=== PATIENT | female | born 1935 | race Caucasian/White ===

== ENCOUNTER 2021-01-31 13:55 | Emergency (ER) | payer MEDICARE | END 2021-01-31 15:44 | disposition left against medical advice (07) | LOC: ERS 13:55 | DX: Z53.21 Procedure and treatment not carried out due to patient leaving prior to being seen by health care provider (principal) ==

== ENCOUNTER 2021-06-07 00:45 | Observation (INO) | payer MEDICARE ==
[2021-06-07] MEDS ORDERED: Aspirin 325 MG TAB ONE ×2 (01:11→09:19)
[2021-06-07 01:33] LABS: #Basophils 0.1 thou/uL (0.0-0.2); #Eosinphils 0.2 thou/uL (0.0-0.7); #Lymphocytes 1.7 thou/uL (1.20-3.40); #Monocytes 0.8 thou/uL (0.11-0.59); #Neutrophils 3.6 thou/uL (1.40-6.50); %Basophils 1.3 % (0.0-1.0); %Eosinophils 3.1 % (0.0-10.0); %Lymphocytes 27.1 % (21.0-51.0); %Monocytes 12.1 % (0.0-10.0); %Neutrophils 56.5 % (42.0-75.0); Hemoglobin 13.1 g/dL (12.0-16.0); Mean Corpuscular HGB CONC 31.7 g/dL (32.0-36.0); Mean Corpuscular Hemoglobin 28.2 pg (27.0-31.0); Mean Corpuscular Volume 89.1 fL (78.0-98.0); Mean Platelet Volume 10.1 fL (7.4-10.4); Platelet Count 176 thou/uL (130-400); RBC Distribution Width 12.3 % (11.5-14.5); Red Blood Cell (RBC) Count 4.63 mill/uL (4.20-5.40); White Blood Cell (WBC) Count 6.4 thou/uL (4.8-10.8)
[2021-06-07 01:57] LABS: ALT (SGPT) 19 U/L (8-55); AST (SGOT) 24 U/L (5-34); Alkaline Phosphatase 116 U/L (40-110); Anion Gap 12 mmol/L (10-20); BUN (Urea Nitrogen) 26 mg/dL (9.8-20.1); Bilirubin, Total 0.4 mg/dL (0.2-1.2); Calc. Creatinine Clearance 0 mL/min (70-130); Calcium 9.5 mg/dL (7.8-10.44); Carbon Dioxide 30 mmol/L (23-31); Chloride 102 mmol/L (98-107); Globulin 2.9 g/dL (2.4-3.5); Glucose 116 mg/dL (83-110); Potassium 4.4 mmol/L (3.5-5.1); Protein, Total 6.9 g/dL (5.8-8.1); Sodium 140 mmol/L (136-145)
[2021-06-07 05:06] LABS: SARS-CoV-2 NAA Rapid Test Not Detected (NotDetected)
[2021-06-07 06:04] LABS: Bacteria/HPF None Seen HPF (None Seen); Bilirubin Negative (Negative); Blood, Urine 1+ (Negative); Clarity Turbid (Clear); Glucose, Urine (Dipstick) Normal (Negative); Ketone, Urine Negative (Negative); Leukocyte 500 Leu/uL (Negative); Nitrite Negative (Negative); Protein, Urine (Dipstick) Negative (Neg-Trace); Specific Gravity, Urine 1.012 (1.002-1.036); Squamous Epithelial 0-3 HPF (0-3); Urobilinogen Normal mg/dL (Less than 2); WBC/HPF Greater than 50 HPF (0-3); pH, Urine 6.5 (5.0-9.0)
[2021-06-07] MEDS ORDERED: Senokot S 8.6-50 MG TAB PO PRN (07:30)
[2021-06-07] MEDS ORDERED: Bisacodyl 5 MG TAB PO PRN (07:30)
[2021-06-07] MEDS ORDERED: Bisacodyl 10 MG SUPP PR PRN (07:30)
[2021-06-07] MEDS ORDERED: Acetaminophen 325 MG TAB PO PRN (07:30)
[2021-06-07] MEDS ORDERED: Ondansetron PF 4 MG/2 ML Vial IVP PRN (07:30)
[2021-06-07 08:46] LABS: Cardiac Risk 3.3 (Less than 4.5)
[2021-06-07] MEDS: Aspirin 325 MG TAB PO SCH (09:24)
[2021-06-07 18:05] VITALS: BMI 25.4
[2021-06-07] MEDS ORDERED: Temazepam 15 MG CAP PO PRN (18:38)
[2021-06-07] MEDS ORDERED: Donepezil HCl 10 MG TAB PO SCH (21:00)
[2021-06-07] MEDS ORDERED: Lorazepam 0.5 MG TAB PO SCH (21:00)
[2021-06-07] MEDS ORDERED: Atorvastatin Calcium 40 MG TAB PO SCH (21:00)
[2021-06-08 04:52] LABS: #Basophils 0.1 thou/uL (0.0-0.2); #Eosinphils 0.3 thou/uL (0.0-0.7); #Lymphocytes 1.5 thou/uL (1.20-3.40); #Monocytes 0.6 thou/uL (0.11-0.59); %Basophils 1.3 % (0.0-1.0); %Eosinophils 4.8 % (0.0-10.0); %Lymphocytes 27.8 % (21.0-51.0); %Monocytes 11.7 % (0.0-10.0); %Neutrophils 54.4 % (42.0-75.0); Mean Corpuscular HGB CONC 33.4 g/dL (32.0-36.0); Mean Corpuscular Hemoglobin 29.3 pg (27.0-31.0); Mean Corpuscular Volume 87.7 fL (78.0-98.0); Mean Platelet Volume 10.1 fL (7.4-10.4); Platelet Count 176 thou/uL (130-400); RBC Distribution Width 12.1 % (11.5-14.5); Red Blood Cell (RBC) Count 4.43 mill/uL (4.20-5.40); White Blood Cell (WBC) Count 5.5 thou/uL (4.8-10.8)
[2021-06-08 05:15] LABS: ALT (SGPT) 16 U/L (8-55); AST (SGOT) 23 U/L (5-34); Albumin 3.6 g/dL (3.4-4.8); Alkaline Phosphatase 96 U/L (40-110); Anion Gap 12 mmol/L (10-20); BUN (Urea Nitrogen) 20 mg/dL (9.8-20.1); Bilirubin, Total 0.5 mg/dL (0.2-1.2); Calc. Creatinine Clearance 49 mL/min (70-130); Calcium 9.3 mg/dL (7.8-10.44); Carbon Dioxide 28 mmol/L (23-31); Chloride 105 mmol/L (98-107); Globulin 2.5 g/dL (2.4-3.5); Glucose 103 mg/dL (83-110); Magnesium 2.1 mg/dL (1.6-2.6); Phosphorus 4.1 mg/dL (2.3-4.7); Potassium 4.4 mmol/L (3.5-5.1); Protein, Total 6.1 g/dL (5.8-8.1); Sodium 141 mmol/L (136-145)
[2021-06-08] MEDS ORDERED: Levothyroxine Sodium 50 MCG TAB PO SCH (06:00)
[2021-06-08] MEDS ORDERED: Stress 600 With Zinc 1 TAB PO SCH (09:00)
[2021-06-08] MEDS: Aspirin 325 MG TAB PO SCH (09:11)
[2021-06-08 11:59] VITALS: BP 162/72; TEMP 97.6
[2021-06-10] MEDS ORDERED: FLU VACC QS2021-22(65YR UP)/PF 240 MCG/0.7 ML SYRINGE IM ONE (09:00)
== END 2021-06-08 15:38 | disposition home or self-care (01) ==
LOC: ERS 00:45 → ERHOLD 03:35 → 2SW 16:03
PROVIDERS: ADMIT Family Medicine; ATTEND Family Medicine
DX: R29.810 Facial weakness (principal); R20.0 Anesthesia of skin; I16.1 Hypertensive emergency; I11.9 Hypertensive heart disease without heart failure; F03.90 Unspecified dementia, unspecified severity, without behavioral disturbance, psychotic disturbance, mood disturbance, and anxiety; G47.00 Insomnia, unspecified; E03.9 Hypothyroidism, unspecified; E78.5 Hyperlipidemia, unspecified; I08.8 Other rheumatic multiple valve diseases; Z79.899 Other long term (current) drug therapy; Z20.822 Contact with and (suspected) exposure to COVID-19
CPT/HCPCS: 70450; 70551; 71045; 80053; 80061; 83036; 83735 ×2; 84100; 84439; 84484; 85025; 93005; 93306; 93880; 97116; 97139 ×4; 99285; G0378 ×3; U0002; 36415; 81003; 81015; 84443

== ENCOUNTER 2022-10-06 21:12 | Emergency (ER) | payer MEDICARE ==
[2022-10-06] MEDS ORDERED: Acetaminophen 500 MG TAB ONE (21:31)
[2022-10-06 21:57] LABS: Bacteria/HPF 4+ HPF (None Seen); Bilirubin Negative (Negative); Blood, Urine 2+ (Negative); Clarity Clear (Clear); Glucose, Urine (Dipstick) Normal (Negative); Ketone, Urine Negative (Negative); Leukocyte 500 Leu/uL (Negative); Nitrite Negative (Negative); Protein, Urine (Dipstick) Negative (Neg-Trace); RBC/HPF Greater than 50 HPF (0-3); Renal Epithelial 0-3 HPF (None Seen); Squamous Epithelial 0-3 HPF (0-3); Urobilinogen Normal mg/dL (Less than 2); WBC/HPF 21-50 HPF (0-3)
[2022-10-06] MEDS ORDERED: Labetalol HCl 100 MG/20 ML VIAL ONE (22:12)
[2022-10-06] MEDS ORDERED: cefTRIAXone\\ROCEPHIN 1 GM VIAL ONE (22:12)
[2022-10-06 22:21] LABS: #Basophils 0.1 thou/uL (0.0-0.2); #Eosinphils 0.2 thou/uL (0.0-0.7); #Monocytes 0.6 thou/uL (0.11-0.59); #Neutrophils 2.7 thou/uL (1.40-6.50); %Basophils 1.2 % (0.0-1.0); %Lymphocytes 36.3 % (21.0-51.0); %Monocytes 10.7 % (0.0-10.0); %Neutrophils 47.8 % (42.0-75.0); Hemoglobin 13.6 g/dL (12.0-16.0); Mean Corpuscular HGB CONC 31.5 g/dL (32.0-36.0); Mean Corpuscular Hemoglobin 28.7 pg (27.0-31.0); Mean Corpuscular Volume 90.8 fl (78.0-98.0); Mean Platelet Volume 10.6 fL (7.4-10.4); Platelet Count 173 10x3/uL (130-400); RBC Distribution Width 12.1 % (11.5-14.5); Red Blood Cell (RBC) Count 4.76 mill/uL (4.20-5.40); White Blood Cell (WBC) Count 5.5 10x3/uL (4.8-10.8)
[2022-10-06 22:26] LABS: SARS-CoV-2 NAA Rapid Test Not Detected (NotDetected)
[2022-10-06 22:41] LABS: ALT (SGPT) 16 U/L (8-55); AST (SGOT) 22 U/L (5-34); Albumin 4.4 g/dL (3.4-4.8); Alkaline Phosphatase 132 U/L (40-110); Anion Gap 14 mmol/L (10-20); BUN (Urea Nitrogen) 22 mg/dL (9.8-20.1); Bilirubin, Total 0.5 mg/dL (0.2-1.2); Calc. Creatinine Clearance 0 mL/min (70-130); Calcium 9.3 mg/dL (7.8-10.44); Carbon Dioxide 26 mmol/L (23-31); Chloride 104 mmol/L (98-107); Estimated GFR 59; Globulin 3.2 g/dL (2.4-3.5); Glucose 105 mg/dL (83-110); Lipase 18 U/L (8-78); Magnesium 2.3 mg/dL (1.6-2.6); Protein, Total 7.6 g/dL (5.8-8.1); Sodium 140 mmol/L (136-145)
== END 2022-10-06 23:17 | disposition home or self-care (01) ==
LOC: ERS 21:12
DX: N39.0 Urinary tract infection, site not specified (principal); E78.00 Pure hypercholesterolemia, unspecified; E03.9 Hypothyroidism, unspecified; Z79.82 Long term (current) use of aspirin; Z20.822 Contact with and (suspected) exposure to COVID-19
CPT/HCPCS: 0240U; 71045; 83605; 83690; 83735; 84484; 87040; 87086; 93005; 96365; 96375; 99284; 36415; 80053; 81003; 81015; 84443; 85025; J0696

== ENCOUNTER 2023-01-17 12:20 | Outpatient (CLI) | payer MEDICARE ==
[~2023-01-17 12:20] MED LIST: Iopamidol 370 76% 100 ML VIAL ONE
== END 2023-01-17 12:21 | disposition home or self-care (01) ==
LOC: BICCT 12:20
PROVIDERS: ATTEND Internal Medicine
DX: R31.0 Gross hematuria (principal); K80.20 Calculus of gallbladder without cholecystitis without obstruction
CPT/HCPCS: 74178; 82565; Q9967

== ENCOUNTER 2023-11-03 19:27 | Emergency (ER) | payer MEDICARE | END 2023-11-03 21:00 | disposition home or self-care (01) | LOC: ERS 19:27 | DX: Z04.1 Encounter for examination and observation following transport accident (principal); E03.9 Hypothyroidism, unspecified; E78.00 Pure hypercholesterolemia, unspecified; Z79.899 Other long term (current) drug therapy; Z79.82 Long term (current) use of aspirin; Z55.6 Problems related to health literacy | CPT/HCPCS: 70450; 72125 ==

== ENCOUNTER 2024-07-11 16:39 | Emergency (ER) | payer MEDICARE ==
[2024-07-11 18:59] LABS: #Basophils 0.09 10x3/uL (0.0-0.2); %Basophils 1.2 % (0.0-1.0); %Eosinophils 2.7 % (0.0-10.0); %Lymphocytes 23.5 % (21.0-51.0); %Monocytes 11.6 % (0.0-10.0); %Neutrophils 60.6 % (42.0-75.0); Hematocrit 40.7 % (36.0-47.0); Hemoglobin 12.8 g/dL (12.0-16.0); Mean Corpuscular HGB CONC 31.4 g/dL (32.0-36.0); Mean Corpuscular Hemoglobin 28.2 pg (27.0-31.0); Mean Corpuscular Volume 89.6 fL (78.0-98.0); Mean Platelet Volume 12.4 fL (7.4-10.4); Platelet Count 226 10x3/uL (130-400); RBC Distribution Width 13.7 % (11.5-14.5); Red Blood Cell (RBC) Count 4.54 mill/uL (4.20-5.40)
[2024-07-11 19:06] LABS: Actual Bicarbonate (HCO3v) 32.2 mEq/L (22-28); Analyzer IN Cardio ER; Base Excess 5.9 mEq/L (-2.0 to +3.0); Calcium, Ionized (venous) 1.11 mmol/L (1.16-1.32); Chloride (VBG) 102 mmol/L (98-106); Hematocrit-VBG 41 % (36.0-47.0); Hemoglobin (Hb) 13.9 g/dL (11.7-16.1); Potassium (VBG) 4.71 mmol/L (3.70-5.30); Sodium 146 mmol/L (133-146); pH (venous) 7.397 (7.32-7.43)
[2024-07-11 19:23] LABS: ALT (SGPT) 16 U/L (8-55); AST (SGOT) 23 U/L (5-34); Albumin 3.6 g/dL (3.4-4.8); Alkaline Phosphatase 147 U/L (40-110); Anion Gap 17 mmol/L (10-20); BUN (Urea Nitrogen) 19 mg/dL (9.8-20.1); Bilirubin, Total 0.3 mg/dL (0.2-1.2); Calc. Creatinine Clearance 0 mL/min (70-130); Calcium 9.6 mg/dL (7.8-10.44); Carbon Dioxide 28 mmol/L (23-31); Chloride 104 mmol/L (98-107); Estimated GFR 47; Globulin 3.7 g/dL (2.4-3.5); Glucose 123 mg/dL (83-110); Magnesium 2.2 mg/dL (1.6-2.6); Potassium 4.8 mmol/L (3.5-5.1); Protein, Total 7.2 g/dL (5.8-8.1); Sodium 144 mmol/L (136-145)
[2024-07-11 19:24] LABS: Troponin I Less than 0.010 ng/mL (< 0.028)
[2024-07-11 20:44] LABS: Bilirubin Negative (Negative); Blood, Urine Negative (Negative); CAUTI Indications for Culture Alt mental st,lethar; Clarity Turbid (Clear); Glucose, Urine (Dipstick) Normal (Negative); Ketone, Urine Negative (Negative); Leukocyte 500 Leu/uL (Negative); Nitrite 2+ (Negative); Protein, Urine (Dipstick) Negative (Neg-Trace); RBC/HPF 0-3 HPF (0-3); Specific Gravity, Urine 1.003 (1.002-1.036); Squamous Epithelial 0-3 HPF (0-3); Urobilinogen Normal mg/dL (Less than 2); WBC/HPF Greater than 50 HPF (0-3); pH, Urine 7.5 (5.0-9.0)
[2024-07-11 20:55] LABS: Bacteria/HPF 3+ HPF (None Seen)
[2024-07-11 20:57] LABS: Yeast-Budding None Seen HPF (None Seen)
[2024-07-11 21:00] LABS: Urine Culture Reflex Yes Yes
== END 2024-07-11 21:30 | disposition home or self-care (01) ==
LOC: ERS 16:39
DX: N39.0 Urinary tract infection, site not specified (principal); E03.9 Hypothyroidism, unspecified; E78.00 Pure hypercholesterolemia, unspecified; Z79.899 Other long term (current) drug therapy; Z79.890 Hormone replacement therapy
CPT/HCPCS: 36415; 70360; 70450; 71045; 80053; 81001; 82805; 83605; 83735; 84484; 85025; 87077; 87086; 87186; 93005

== ENCOUNTER 2024-08-17 21:33 | Emergency (ER) | payer MEDICARE ==
[~2024-08-17 21:33] MED LIST changes: -Iopamidol 370 76% 100 ML VIAL ONE; +Iopamidol-370 76% 500 ML MDV (1 ML CHARGE) ONE
[2024-08-17] MEDS ORDERED: Morphine 2 MG/ML VIAL ONE ×2 (21:47→22:31)
[2024-08-17] MEDS ORDERED: Ketorolac Tromethamine 30 MG (1 mL) VIAL ONE (21:47)
[2024-08-17 22:15] LABS: #Basophils 0.06 10x3/uL (0.0-0.2); %Basophils 0.6 % (0.0-1.0); %Eosinophils 1.2 % (0.0-10.0); %Lymphocytes 12.9 % (21.0-51.0); %Monocytes 8.7 % (0.0-10.0); %Neutrophils 76.2 % (42.0-75.0); Hematocrit 42.3 % (36.0-47.0); Hemoglobin 13.4 g/dL (12.0-16.0); Mean Corpuscular HGB CONC 31.7 g/dL (32.0-36.0); Mean Corpuscular Hemoglobin 27.6 pg (27.0-31.0); Mean Platelet Volume 12.7 fL (7.4-10.4); Platelet Count 234 10x3/uL (130-400); RBC Distribution Width 14.3 % (11.5-14.5); Red Blood Cell (RBC) Count 4.86 mill/uL (4.20-5.40)
[2024-08-17 22:36] LABS: ALT (SGPT) 22 U/L (8-55); AST (SGOT) 34 U/L (5-34); Albumin 3.7 g/dL (3.4-4.8); Alkaline Phosphatase 127 U/L (40-110); Anion Gap 21 mmol/L (10-20); BUN (Urea Nitrogen) 20 mg/dL (9.8-20.1); Bilirubin, Total 0.6 mg/dL (0.2-1.2); Calc. Creatinine Clearance 0 mL/min (70-130); Calcium 9.8 mg/dL (7.8-10.44); Carbon Dioxide 25 mmol/L (23-31); Chloride 103 mmol/L (98-107); Estimated GFR 56; Globulin 4.6 g/dL (2.4-3.5); Glucose 130 mg/dL (83-110); Potassium 4.5 mmol/L (3.5-5.1); Protein, Total 8.3 g/dL (5.8-8.1); Sodium 144 mmol/L (136-145)
[2024-08-17 22:51] LABS: Bilirubin Negative (Negative); Blood, Urine Negative (Negative); CAUTI Indications for Culture Dysuria,urgency,freq; Clarity Turbid (Clear); Glucose, Urine (Dipstick) Normal (Negative); Ketone, Urine Negative (Negative); Leukocyte 500 Leu/uL (Negative); Nitrite Negative (Negative); Protein, Urine (Dipstick) 10 mg/dL (Neg-Trace); RBC/HPF 0-3 HPF (0-3); Specific Gravity, Urine 1.012 (1.002-1.036); Urobilinogen Normal mg/dL (Less than 2); WBC/HPF Greater than 50 HPF (0-3); pH, Urine 6.5 (5.0-9.0)
[2024-08-17 22:52] LABS: Bacteria/HPF Rare-Few HPF (None Seen)
[2024-08-17 22:54] LABS: Urine Culture Reflex Yes Yes
== END 2024-08-18 04:06 ==
LOC: ERS 21:33
DX: N39.0 Urinary tract infection, site not specified (principal); K59.00 Constipation, unspecified; K56.41 Fecal impaction; E78.00 Pure hypercholesterolemia, unspecified; E03.9 Hypothyroidism, unspecified; Z79.890 Hormone replacement therapy; Z79.899 Other long term (current) drug therapy
CPT/HCPCS: 70450; 71260; 72125; 74177; 80053; 81001; 83690; 85025; 87086; 93005; 96374; 96375; 96376; 99284; J1885; J2272; Q9967